=== PATIENT | female | born 1990 | race Caucasian/White ===

== ENCOUNTER 2019-06-23 22:06 | Emergency (ER) | payer OTHER ==
[~2019-06-23] VITALS: Ht 162.6 cm; Wt 59.0 kg
[2019-06-24] MEDS ORDERED: MOBIC15 MG PO (01:58)
[2019-06-24] MEDS ORDERED: NORCO 5-325 TA1 EAC1 PO (01:58)
[2019-06-24 02:14] VITALS: BP 113/66
== END 2019-06-24 02:13 | disposition home or self-care (01) ==
LOC: ER 22:06
DX: S42.392A Other fracture of shaft of left humerus, initial encounter for closed fracture (principal); M54.2 Cervicalgia; R10.13 Epigastric pain; R07.89 Other chest pain; V89.2XXA Person injured in unspecified motor-vehicle accident, traffic, initial encounter; Y93.89 Activity, other specified; Y92.89 Other specified places as the place of occurrence of the external cause; Y99.8 Other external cause status